=== PATIENT | female | born 1970 | race Caucasian/White ===

== ENCOUNTER 2018-11-11 16:23 | Emergency (ER) | payer OTHER ==
[~2018-11-11] VITALS: Ht 162.6 cm; Wt 124.0 kg
--- NOTE | 2018-11-11 16:32 | ERD ---
ER Documentation Chief Complaint Chief Complaint Cough and congestion HPI The patient is a 47-year-old female, presenting to the ER because of cough congestion for the last 4 days. She went to the clinic where she was seen and sent to the hospital. She was found to have hypokalemia of 2.9 treated with potassium chloride 40 mg p.o. She denies fever, chills, neck pain, chest pain, complains of chronic dyspnea and bilateral leg edema, denies abdominal pain, vomiting, dizzy, diarrhea. She used to smoke until 7 years ago, does not drink Past medical history: History of CHF, pulmonary hypertension, schizoaffective disorder, panic disorder, depression, hypothyroidism, diabetes mellitus Past surgical history: Tonsillectomy, cholecystectomy ROS All systems reviewed and are negative except as per history of present illness. Medications Home Meds Active Scripts Dextromethorphan Hb-Promethazine Hcl* (Promethazine DM* Syrup) 473 Ml Syrup, 10 ML PO Q6 PRN for COUGH, #120 ML Prov:DANNA YEBOAH MD 11/11/18 Azithromycin* (Zithromax*) 250 Mg Tablet, 250 MG PO .ZPACK DIRECTED, #6 TAB TAKE 500 MG (2 TABS) THE FIRST DAY THEN 250 MG (1 TAB) DAYS 2-5 Prov:DANNA YEBOAH MD 11/11/18 Reported Medications Albuterol Sulfate (Proair Respiclick) 90 Mcg Aer.pow.ba, 2 PUFFS INHALATION Q6, #1 BOTTLE 11/11/18 Cariprazine HCl (Vraylar) 6 Mg Capsule, 6 MG PO DAILY, CAP 11/11/18 Cariprazine HCl (Vraylar) 3 Mg Capsule, 3 MG PO DAILY, CAP 11/11/18 Tiotropium [place]* (Spiriva*) 18 Mcg Cap.w.dev, 1 CAP INHALATION DAILY, #30 CAP 11/11/18 Spironolactone* (Aldactone*) 25 Mg Tablet, 25 MG PO DAILY, #30 TAB 11/11/18 Potassium Chloride* (Potassium Chloride*) 20 Meq Tablet.er, 20 MEQ PO DAILY, TAB.SA 11/11/18 Levothyroxine Sodium* (Levothyroxine Sodium*) 25 Mcg Tablet, 25 MCG PO BEFORE BREAKFAST, #30 TAB 11/11/18 Ibuprofen* (Ibuprofen*) 800 Mg Tab, 800 MG PO Q8H PRN for PAIN, TAB 11/11/18 Furosemide* (Furosemide*) 40 Mg Tablet, 40 MG PO DAILY, TAB 11/11/18 Fluticasone Propionate* (Fluticasone Propionate* Nasal) 50 Mcg/[place] - 16 Gm [place].susp, 1 SPRAY NASAL BID, #1 BOTTLE TO EACH NOSTRIL 11/11/18 Digoxin* (Digitek*) 250 Mcg Tablet, 0.25 MG PO DAILY, TAB 11/11/18 Desloratadine (Clarinex) 5 Mg Tablet, 5 MG PO DAILY, TAB 11/11/18 Bupropion Hcl* (Bupropion XL*) 150 Mg Tab.er.24h, 150 MG PO DAILY, TAB.SA 11/11/18 Allergies Allergies: Coded Allergies: hydrogen peroxide (Unverified Allergy, Unknown, 11/11/18) Physical Exam Vitals Vital Signs Date Temp Pulse Resp B/P (MAP) Pulse Ox O2 O2 Flow FiO2 Time Delivery Rate 11/11/18 103 19 131/57 95 Room Air 18:44 (81) 11/11/18 97.7 106 20 128/70 97 Room Air 18:00 (89) 11/11/18 102 22 96 21 17:31 11/11/18 97.7 98 20 113/74 99 16:38 (87) Physical Exam Const: No acute distress. Head: Atraumatic. Eyes: Normal Conjunctiva. ENT: Normal External Ears, Nose and Mouth. Neck: Full range of motion. No meningismus. Resp: Mild bilateral expiratory wheezes Cardio: Regular rate and rhythm. Abd: Soft, non distended, normal bowel sounds, non tender. Skin: No petechiae or rashes. Back: No midline or flank tenderness. Ext: Mild bilateral leg edema, vague calf tenderness Neur: Awake and alert. No focal deficit Psych: Normal Mood and Affect. Result Diagram: 11/11/18 1640 11/11/18 1640 Results 24 hrs Laboratory Tests Test 11/11/18 16:40 White Blood Count 9.1 10^3/ul Red Blood Count 5.01 10^6/ul Hemoglobin 14.0 g/dl Hematocrit 43.5 % Mean Corpuscular Volume 86.8 fl Mean Corpuscular Hemoglobin 27.9 pg Mean Corpuscular Hemoglobin Concent 32.2 g/dl Red Cell Distribution Width 15.9 % Platelet Count 322 10^3/UL Mean Platelet Volume 10.1 fl Immature Granulocytes % 0.300 % Neutrophils % 56.8 % Lymphocytes % 28.4 % Monocytes % 10.6 % Eosinophils % 3.4 % Basophils % 0.5 % Nucleated Red Blood Cells % 0.0 /100WBC Immature Granulocytes # 0.030 10^3/ul Neutrophils # 5.2 10^3/ul Lymphocytes # 2.6 10^3/ul Monocytes # 1.0 10^3/ul Eosinophils # 0.3 10^3/ul Basophils # 0.1 10^3/ul Nucleated Red Blood Cells # 0.0 10^3/ul Prothrombin Time 13.3 Sec Prothrombin Time Ratio 1.0 INR International Normalized Ratio 1.00 Activated Partial Thromboplast Time 30.3 Sec D-Dimer 397.05 ng/ml D-Dimer Comment Sodium Level 142 mmol/L Potassium Level 3.0 mmol/L Chloride Level 101 mmol/L Carbon Dioxide Level 31 mmol/L Anion Gap 10 Blood Urea Nitrogen 15 mg/dl Creatinine 1.18 mg/dl Est Glomerular Filtrat Rate mL/min 49 mL/min Glucose Level 96 mg/dl Calcium Level 9.5 mg/dl Magnesium Level 1.7 mg/dl Troponin I < 0.012 ng/ml B-Type Natriuretic Peptide 679 PG/ML Current Medications Medications Dose Sig/Lila Start Time Status Last (Trade) Ordered Route PRN Stop Time Admin Dose Reason Admin Ipratropium 0.5 mg ONCE ONCE 11/11/18 DC 11/11/18 [place] HHN 17:00 11/11/18 17:30 (Atrovent 17:01 0.02% (Neb)) 1.25 mg ONCE ONCE 11/11/18 DC 11/11/18 Levalbuterol HHN 17:00 11/11/18 17:30 (Xopenex 17:01 Neb) Potassium 40 meq ONCE STAT 11/11/18 DC 11/11/18 Chloride PO 18:22 11/11/18 18:24 (Klor-Con 20) 18:23 Procedures/[address] [address] Radiology Main Line: [phone] DIAGNOSTIC IMAGING REPORT Patient: VICKEY MASCORRO : 1970 Age: 47 Sex: F MR #: [id number] DOS: 11/11/18 1639 Ordering MD: DANNA YEBOAH MD Location: E/R Room/Bed: PROCEDURE: XR Chest. CLINICAL INDICATION: chest pain TECHNIQUE: Single frontal view of the chest was obtained COMPARISON: None FINDINGS: The heart and mediastinum are within normal limits. The lungs are clear. There is no pleural effusion or pneumothorax. RPTAT: AA IMPRESSION: No acute disease. .Masoud Archuleta MD, MD Date Time Electronically viewed and signed by .Masoud Archuleta MD, on 11/11/2018 17:49 .S/ CC: DANNA YEBOAH MD [id number] [place] [address] Radiology Main Line: [phone] DIAGNOSTIC IMAGING REPORT Patient: VICKEY MASCORRO : 1970 Age: 47 Sex: F MR #: [id number] DOS: 11/11/18 1639 Ordering MD: DANNA YEBOAH MD Location: E/R Room/Bed: PROCEDURE: US Lower extremity Venous. CLINICAL INDICATION: Bilateral lower extremity edema TECHNIQUE: Multiple sonographic images of the bilateral lower extremity deep venous system was obtained utilizing grayscale, color-flow, compressive sonography and doppler imaging with augmentation. The images were reviewed on a PACS workstation. COMPARISON: None. FINDINGS: There is normal compressibility and flow within the bilateral common femoral, femoral , posterior tibial and popliteal veins. The peroneal veins were not visualized. Limited study due to the patient's body habitus. RPTAT: AA IMPRESSION: No sonographic evidence for deep venous thrombosis. Limited study due to the patient's body habitus. .Masoud Archuleta MD, MD Date Time Electronically viewed and signed by .Masoud Archuleta MD, MD on 11/11/2018 17 :30 .S/ CC: DANNA YEBOAH MD [id number] EKG: Read by emergency physician Rate/Rhythm: Sinus tachycardia 104 beats/min QRS, ST, T-waves: No ST elevation, no T inversion, RAD, RBBB, RVH Impression: Abnormal EKG MEDICAL MAKING DECISION: The patient is a 47-year-old female, presenting with acute bronchitis, is concerning for acute lower respiratory function, chronic CHF, acute hypokalemia. She was treated with Xopenex 1.25 mg and Atrovent 0.5 mg for wheezing, potassium chloride 40 mcg p.o. for acute hypokalemia with good response, is stable outpatient follow-up The differential diagnoses considered include but are not limited to asthma, COPD, pneumonia, pulmonary embolus, pleural effusion, congestive heart failure. Departure Diagnosis: Primary Impression: Bronchitis Additional Impressions: CHF (congestive heart failure) Hypokalemia Condition: Good Comments She was discharged with Phenergan DM and Zithromax I discussed the findings with the patient. I advised the patient to follow-up with the primary physician in about 2-3 days, sooner if needed and return if any concern. Disclaimer: Inadvertent spelling and grammatical errors are likely due to EHR/dictation software use and do not reflect on the overall quality of patient care. Also, please note that the electronic time recorded on this note does not necessarily reflect the actual time of the patient encounter. DANNA YEBOAH MD November 11, 2018 16:32
[2018-11-11 16:38] VITALS: Ht 162.6 cm; Wt 124.0 kg
[2018-11-11] MEDS ORDERED: LEVALBUTEROL (NEB) 1.25 MG/0.5 ML AMP HHN ONE (17:00)
[2018-11-11] MEDS ORDERED: IPRATROPIUM (NEB) 0.5 MG/2.5 ML AMP HHN ONE (17:00)
[2018-11-11] MEDS ORDERED: DESL5TAB PO (17:57)
[2018-11-11] MEDS ORDERED: BUPR150T6 PO (17:57)
[2018-11-11] MEDS ORDERED: FURO40TA4 PO (17:58)
[2018-11-11] MEDS ORDERED: FLUT16SP17 NASAL (17:58)
[2018-11-11] MEDS ORDERED: DIGO250T PO (17:58)
[2018-11-11] MEDS ORDERED: POTA20TA96 PO (17:59)
[2018-11-11] MEDS ORDERED: IBUP-1545 PO (17:59)
[2018-11-11] MEDS ORDERED: LEVO25TA6 PO (17:59)
[2018-11-11] MEDS ORDERED: TIOT18CA INHALATION (18:00)
[2018-11-11] MEDS ORDERED: SPIR25TA PO (18:00)
[2018-11-11] MEDS ORDERED: CARI3CAP PO (18:01)
[2018-11-11] MEDS ORDERED: CARI6CAP PO (18:01)
[2018-11-11] MEDS ORDERED: ALBU90AE INHALATION (18:02)
[2018-11-11] MEDS ORDERED: POTASSIUM CHLORIDE (SR) 20 MEQ TAB PO STA (18:22)
[2018-11-11] MEDS ORDERED: AZIT250T PO (18:27)
[2018-11-11] MEDS ORDERED: D-ME473S2 PO (18:28)
[2018-11-11 18:44] VITALS: BP 131/57; PULSE 103; RESP 19
== END 2018-11-11 18:58 | disposition home or self-care (01) ==
LOC: E/R 16:23
DX: J20.9 Acute bronchitis, unspecified (principal); E11.9 Type 2 diabetes mellitus without complications; E03.9 Hypothyroidism, unspecified; I50.9 Heart failure, unspecified; E87.6 Hypokalemia
CPT/HCPCS: 36415; 71045; 80048; 83735; 83880; 84484; 85025; 85378; 85610; 85730; 93005; 93970; 94664